=== PATIENT | male | born 1955 ===

== ENCOUNTER 2017-04-23 01:28 | Emergency (ER) | payer OTHER ==
--- NOTE | 2017-04-23 01:44 | ED PDOC ---
Arrival/HPI - General Chief Complaint: Alcohol Ingestion Time Seen by Provider: 04/23/17 01:40 Historian: Patient, EMS - History of Present Illness Narrative History of Present Illness (Text): 04/23/17 01:44 Dipesh Vincent is a 61 year old male who presents to the Emergency department brought in by EMS for public intoxication. Patient was found outside inebriated tonight. Patient admits to drinking alcohol and denies any complaints. Patient denies any fever, chills, chest pain, shortness of breath, nausea, vomiting, diarrhea, urinary symptoms, back pain, neck pain, headache, dizziness, or any other complaints. Time/Duration: Other (tonight) Symptom Onset: Gradual Symptom Course: Unchanged Activities at Onset: Light Context: Street Past Medical History - Provider Review Nursing Documentation Reviewed: Yes - Psychiatric Hx Substance Use: (denies) Family/Social History - Physician Review Nursing Documentation Reviewed: Yes Family/Social History: Unknown Family HX Smoking Status: denies Hx Alcohol Use: Yes Frequency of alcohol use: Daily Hx Substance Use: (denies) Allergies/Home Meds Home Medications: Home Meds Medication Instructions Recorded Confirmed Unobtainable 04/23/17 04/23/17 Review of Systems - Physician Review All systems were reviewed & negative as marked: Yes - Review of Systems Constitutional: Normal. absent: Fevers Eyes: Normal ENT: Normal Respiratory: Normal. absent: SOB, Cough Cardiovascular: Normal. absent: Chest Pain Gastrointestinal: Normal. absent: Abdominal Pain, Diarrhea, Nausea, Vomiting Genitourinary Male: Normal. absent: Dysuria, Frequency, Hematuria, Urinary Output Changes Musculoskeletal: Normal. absent: Back Pain, Neck Pain Skin: Normal. absent: Rash Neurological: Normal. absent: Headache, Dizziness Endocrine: Normal Hemo/Lymphatic: Normal Psychiatric: Other (+alcohol intoxication) Physical Exam Vital Signs Reviewed: Yes Vital Signs Temp Pulse Resp BP Pulse Ox 04/23/17 06:44 97.5 F L 93 H 18 113/70 97 04/23/17 01:57 67 18 116/74 99 Temperature: Afebrile Blood Pressure: Normal Pulse: Regular Respiratory Rate: Normal Appearance: Positive for: Well-Appearing, Comfortable Pain Distress: None Mental Status: Positive for: other (Alert) - Systems Exam Head: Present: Atraumatic, Normocephalic Pupils: Present: PERRL Extroacular Muscles: Present: EOMI Conjunctiva: Present: Normal Mouth: Present: Moist Mucous Membranes Neck: Present: Normal Range of Motion Respiratory/Chest: Present: Clear to Auscultation, Good Air Exchange. No: Respiratory Distress, Accessory Muscle Use Cardiovascular: Present: Regular Rate and Rhythm, Normal S1, S2. No: Murmurs Abdomen: Present: Normal Bowel Sounds. No: Tenderness, Distention, Peritoneal Signs Back: Present: Normal Inspection Upper Extremity: Present: Normal Inspection. No: Cyanosis, Edema Lower Extremity: Present: Normal Inspection. No: Edema Neurological: Present: GCS=15, CN II-XII Intact, Speech Normal Skin: Present: Warm, Dry, Normal Color. No: Rashes Psychiatric: Present: Alert Medical Decision Making ED Course and Treatment: 04/23/17 01:44 Impression: 61 year old male brought in for alcohol intoxication. Differential Diagnosis included but are not limited to: alcohol intoxication Plan: -- Reassess and disposition Progress Notes: 04/23/17 07:00 Case endorsed to me by Dr. Wu, pending sobriety, re-evaluation, and final disposition. - Scribe Statement The provider has reviewed the documentation as recorded by the Shine Elmore Provider Scribe Attestation: All medical record entries made by the Scribe were at my direction and personally dictated by me. I have reviewed the chart and agree that the record accurately reflects my personal performance of the history, physical exam, medical decision making, and the department course for this patient. I have also personally directed, reviewed, and agree with the discharge instructions and disposition. Disposition/Present on Arrival - Present on Arrival Any Indicators Present on Arrival: No History of DVT/PE: No History of Uncontrolled Diabetes: No Urinary Catheter: No History of Decub. Ulcer: No History Surgical Site Infection Following: None - Disposition Have Diagnosis and Disposition been Completed?: No Diagnosis: Alcohol intoxication Disposition Time: 07:00 Condition: STABLE Referrals: PCP,NO [Primary Care Provider] - Follow up with primary Forms: [employer] (Guatemalan)
[2017-04-23] MEDS ORDERED: Sodium Chloride 0.9% 1,000 ML IV STA (07:58)
--- NOTE | 2017-04-23 08:00 | ED PDOC ---
Physical Exam Vital Signs Temp Pulse Resp BP Pulse Ox 04/23/17 09:00 97.6 F 78 19 119/70 100 04/23/17 06:44 97.5 F L 93 H 18 113/70 97 04/23/17 01:57 67 18 116/74 99 Medical Decision Making ED Course and Treatment: 04/23/17 07:59 Patient endorsed to me at 0700. I reviewed triage note and re-examined patient. Patient speaks Italian, is arousable, moves all extremities well. Is nontoxic appearing with stable vital signs and no respiratory distress. No focal motor or sensory deficits noted. ? smell of acetone vs ETOH on exam. IV fluids ordered with basic labs. No family present. Patient admits that he has been drinking No trauma noted. 04/23/17 11:05 Labs reviewed. Blood sugar unremarkable. Anion gap unremarkable currently. Patient alcohol level elevated on labs. With serial exams he is currently awake, alert, normal speech, steady gait. He denies complaints. Re-evaluation, patient is comfortable, denies complaints. Steady gait. Risks of etoh abuse reviewed. Offered counseling he does not wish for this. Discharged with instructions. - Lab Interpretations Lab Results: 04/23/17 08:13 04/23/17 08:13 Lab Results 04/23/17 08:13: Acetaminophen < 10.0 L 04/23/17 08:13: Alcohol, Quantitative 197 H 04/23/17 08:13: PT 11.6, INR 1.05, APTT 29.9 04/23/17 08:13: WBC 6.7, RBC 4.81, Hgb 15.1, Hct 43.4, MCV 90.2, MCH 31.4, MCHC 34.8, RDW 13.3, Plt Count 192, MPV 9.2, Gran % 50.8, Lymph % (Auto) 36.5 H, [place] % (Auto) 5.6, Eos % (Auto) 6.8 H, Baso % (Auto) 0.3, Gran # 3.38, Lymph # 2.4, [place] # 0.4, Eos # 0.5, Baso # 0.02 04/23/17 08:13: Sodium 142, Potassium 3.7, Chloride 100, Carbon Dioxide 27, Anion Gap 20, BUN 15, Creatinine 0.8, Est GFR ( Amer) > 60, Est GFR (Non- Af Amer) > 60, Random Glucose 104, Calcium 8.9, Total Bilirubin 1.2, AST 48, ALT 33, Alkaline Phosphatase 69, Total Protein 8.4 H, Albumin 4.4, Globulin 4.0 , Albumin/Globulin Ratio 1.1 04/23/17 08:12: POC Glucose (mg/dL) 93 - Medication Orders Current Medication Orders: Discontinued Medications Sodium Chloride (Sodium Chloride 0.9%) 1,000 mls @ 1,000 mls/hr IV .Q1H STA Stop: 04/23/17 08:57 Last Admin: 04/23/17 08:20 Dose: 1,000 mls/hr eMAR Start Stop Document 04/23/17 08:20 [place] (Rec: 04/23/17 08:21 [place] [facility] [id number] Intravenous Solution Start Date 04/23/17 Start Time 08:21 Disposition/Present on Arrival - Present on Arrival Any Indicators Present on Arrival: No History of DVT/PE: No History of Uncontrolled Diabetes: No Urinary Catheter: No History of Decub. Ulcer: No History Surgical Site Infection Following: None - Disposition Have Diagnosis and Disposition been Completed?: Yes Diagnosis: Alcohol intoxication Disposition: HOME/ ROUTINE Disposition Time: 11:08 Patient Plan: Discharge Condition: STABLE Discharge Instructions (ExitCare): Alcohol Intoxication (ED) Print Language: ENGLISH Additional Instructions: For any tremors, shaking, headaches, chest pain, shortness of breath, abdominal pain, nausea or vomiting, numbness or weakness, get rechecked. Do not drink and drive. Do not drink excessively. Follow-up with your physician in 1-2 days. Referrals: [facility] [place] [facility] [place] - Follow up with primary [facility] [Outside] - Follow up with primary Forms: [employer] (Jamaican)
[2017-04-23 08:36] LABS: BASO # 0.02 K/mm3 (0.0-2.0); BASO % 0.3 % (0.0-3.0); EOS # 0.5 (0.0-0.7); EOS % 6.8 % (1.5-5.0); GRAN # 3.38 (1.4-6.5); GRAN % 50.8 % (50.0-68.0); HEMATOCRIT 43.4 % (42.0-52.0); LYMPH # 2.4 (1.2-3.4); LYMPH % 36.5 % (22.0-35.0); MEAN CELL VOLUME 90.2 fl (80.0-105.0); MEAN CORPUSCULAR HEMOGLOBIN 31.4 pg (25.0-35.0); MEAN CORPUSCULAR HGB CONC 34.8 g/dl (31.0-37.0); MEAN PLATELET VOLUME 9.2 fl (7.0-11.0); MONO # 0.4 (0.1-0.6); MONO % 5.6 % (1.0-6.0); RED CELL DISTRIBUTION WIDTH 13.3 % (11.5-14.5); WHITE BLOOD COUNT 6.7 10^3/ul (4.5-11.0)
[2017-04-23 08:39] LABS: INR 1.05 (0.93-1.08)
[2017-04-23 08:40] LABS: PARTIAL THROMBOPLASTIN TIME 29.9 Seconds (25.1-36.5)
[2017-04-23 09:01] VITALS: BP 119/70; PULSE 78; RESP 19; TEMP 97.6; O2SAT 100
[2017-04-23 09:07] LABS: ALKALINE PHOSPHATASE 69 U/L (38-126); ALT/SGPT 33 U/L (7-56); AST/SGOT 48 U/L (17-59); BILIRUBIN,TOTAL 1.2 mg/dL (0.2-1.3); BLOOD UREA NITROGEN 15 mg/dL (7-21); CALCIUM 8.9 mg/dL (8.4-10.5); CARBON DIOXIDE 27 mmol/L (21-33); CHLORIDE 100 mmol/L (98-107); GFR AFRICAN-AMERICAN > 60; GLUCOSE,RANDOM 104 mg/dL (70-110); POTASSIUM 3.7 mmol/L (3.6-5.0); SODIUM 142 mmol/L (132-148); TOTAL PROTEIN 8.4 g/dL (5.8-8.3)
[2017-04-23 09:08] LABS: ALB/GLOB RATIO 1.1 (1.1-1.8)
== END 2017-04-23 13:45 | disposition home or self-care (01) ==
LOC: ED 01:28 → MERGE 01:28 → ED 13:45
DX: F10.129 Alcohol abuse with intoxication, unspecified (principal); Y90.6 Blood alcohol level of 120-199 mg/100 ml
CPT/HCPCS: 80053; 80320; 80329; 82948; 85025; 85610; 85730; 99284; J7040

== ENCOUNTER 2017-07-05 22:10 | Emergency (ER) | payer OTHER ==
--- NOTE | 2017-07-05 22:42 | ED PDOC ---
Arrival/HPI - General Chief Complaint: Chest Pain Time Seen by Provider: 07/05/17 22:35 Historian: Patient, Route Deliverer - History of Present Illness Narrative History of Present Illness (Text): 07/05/17 22:42 Dipesh Huang is a 62 year old male, was brought in by EMS, presents to the Emergency department with left sided chest pain and associated headache since yesterday. Patient states chest pain improved after receiving aspirin in the field. Patient denies any fever, chills, shortness of breath, nausea, vomiting, diarrhea, urinary symptoms, back pain, neck pain, headache, dizziness or any other complaints. Patient admits to drinking alcohol tonight. Time/Duration: Prior to Arrival (today) Symptom Onset: Sudden Symptom Course: Improving (after given aspirin ) Context: Home Past Medical History - Provider Review Nursing Documentation Reviewed: Yes - Past History Past History: Non-Contributing - Psychiatric Hx Substance Use: No - Anesthesia Hx Anesthesia: No - Suicidal Assessment Feels Threatened In Home Enviroment: No Family/Social History - Physician Review Nursing Documentation Reviewed: Yes Family/Social History: Unknown Family HX Smoking Status: Never Smoked Hx Alcohol Use: Yes Hx Substance Use: No Allergies/Home Meds Allergies/Adverse Reactions: Allergies No Known Allergies Allergy (Verified 04/19/16 17:28) Home Medications: Home Meds Medication Instructions Recorded Confirmed No Known Home Med [No Known Home 06/03/14 08/30/16 Med] Unobtainable 04/23/17 04/23/17 Review of Systems - Physician Review All systems were reviewed & negative as marked: Yes - Review of Systems Constitutional: Normal Eyes: Normal ENT: Normal Respiratory: Normal. absent: SOB, Cough Cardiovascular: Chest Pain Gastrointestinal: Normal. absent: Abdominal Pain, Diarrhea, Nausea, Vomiting Genitourinary Male: Normal. absent: Dysuria, Frequency, Hematuria, Urinary Output Changes Musculoskeletal: Normal. absent: Back Pain, Neck Pain Skin: Normal. absent: Rash Neurological: Headache. absent: Dizziness Endocrine: Normal Hemo/Lymphatic: Normal Psychiatric: Normal Physical Exam Vital Signs Reviewed: Yes Vital Signs Temp Pulse Resp BP Pulse Ox 07/06/17 06:06 98.1 F 78 17 144/82 98 07/06/17 02:04 73 17 115/82 100 07/05/17 22:22 97.5 F L 76 17 120/78 100 Temperature: Afebrile Blood Pressure: Normal Pulse: Regular Respiratory Rate: Normal Appearance: Positive for: Well-Appearing, Non-Toxic, Comfortable Pain Distress: None Mental Status: Positive for: Alert and Oriented X 3 - Systems Exam Head: Present: Atraumatic, Normocephalic Pupils: Present: PERRL Extroacular Muscles: Present: EOMI Conjunctiva: Present: Normal Mouth: Present: Moist Mucous Membranes Neck: Present: Normal Range of Motion Respiratory/Chest: Present: Clear to Auscultation, Good Air Exchange. No: Respiratory Distress, Accessory Muscle Use Cardiovascular: Present: Regular Rate and Rhythm, Normal S1, S2. No: Murmurs Abdomen: Present: Normal Bowel Sounds. No: Tenderness, Distention, Peritoneal Signs Back: Present: Normal Inspection Upper Extremity: Present: Normal Inspection. No: Cyanosis, Edema Lower Extremity: Present: Normal Inspection. No: Edema Neurological: Present: GCS=15, CN II-XII Intact, Speech Normal Skin: Present: Warm, Dry, Normal Color. No: Rashes Psychiatric: Present: Alert, Oriented x 3, Normal Insight, Normal Concentration Medical Decision Making ED Course and Treatment: 07/05/17 22:42 Impression: 62 year old male presents to the Emergency department with chest pain since yesterday. Plan: -- EKG -- Xray Chest -- Urinalysis -- Labs -- Reassess and disposition Prior Visits: Notes and results from previous visits were reviewed. Patient was last seen in the emergency department on 04/23/2017 for alcohol intoxication. Progress Notes: Reviewed EKG, NSR at [address]/T wave changes. 07/06/17 00:32 Chest X-ray reviewed, shows no acute distress. Pt states he sleeping, in no acute distress, states feels fine currently. Pt states he does not wish to stay in the hospital. I have discussed the results and plan with the patient, who expresses understanding. Patient in agreement with plan to be discharged home. Patient is stable for discharge. Patient was instructed to follow up with physician or return if symptoms worsen or new concerning symptoms arise. Cardiology / EKG Studies 07/05/17 22:22 EKG [ELECTROCARDIOGRAM] Stat Comment: Reason For Exam: CHEST PAIN 07/07/17 07:45 pt observed sleeping in nad, serial trop neg. pt asking ro dc steady gait - Lab Interpretations Lab Results: 07/05/17 23:07 07/05/17 23:07 Lab Results 07/06/17 00:54: Troponin I 0.02 07/05/17 23:07: Sodium 146, Potassium 3.4 L, Chloride 107, Carbon Dioxide 22, Anion Gap 21 H, BUN 12, Creatinine 1.0, Est GFR ( Amer) > 60, Est GFR ( Non-Af Amer) > 60, Random Glucose 104, Calcium 8.7, Magnesium 1.8, Total Bilirubin 0.4, AST 40, ALT 38, Alkaline Phosphatase 67, Lactate Dehydrogenase 522, Total Creatine Kinase 216, Troponin I 0.02, Total Protein 7.5, Albumin 3.8 , Globulin 3.7, Albumin/Globulin Ratio 1.0 L 07/05/17 23:07: PT 11.5, INR 1.01, APTT 30.4 07/05/17 23:07: WBC 5.8, RBC 4.39, Hgb 13.6 L, Hct 40.9 L, MCV 93.2 D, MCH 31.0 , MCHC 33.3, RDW 14.1, Plt Count 144, MPV 9.4, Gran % 43.3 L, Lymph % (Auto) 34.4, [place] % (Auto) 18.8 H, Eos % (Auto) 3.3, Baso % (Auto) 0.2, Gran # 2.52, Lymph # (Auto) 2.0, [place] # (Auto) 1.1 H, Eos # (Auto) 0.2, Baso # (Auto) 0.01 I have reviewed the lab results: Yes - RAD Interpretation Radiology Orders: 07/05/17 22:42 CHEST PORTABLE [RAD] Stat Corset Maker: ED Physician - EKG Interpretation Interpreted by ED Physician: Yes Type: 12 lead EKG - Scribe Statement The provider has reviewed the documentation as recorded by the Shine Oneill training under Mercedes Elmore All medical record entries made by the Madelynibshelia were at my direction and personally dictated by me. I have reviewed the chart and agree that the record accurately reflects my personal performance of the history, physical exam, medical decision making, and the department course for this patient. I have also personally directed, reviewed, and agree with the discharge instructions and disposition. Disposition/Present on Arrival - Present on Arrival Any Indicators Present on Arrival: No History of DVT/PE: No History of Uncontrolled Diabetes: No Urinary Catheter: No History of Decub. Ulcer: No History Surgical Site Infection Following: None - Disposition Have Diagnosis and Disposition been Completed?: Yes Diagnosis: Chest pain Disposition: HOME/ ROUTINE Disposition Time: 06:00 Condition: STABLE Discharge Instructions (ExitCare): Chest Pain (ED) Additional Instructions: follow up with your doctor/clinic and specialist. return to er with worsening symptoms or concerns. Referrals: [facility] [Outside] - Follow up with primary [facility] [place]] - Follow up with primary Zander Palma MD [Staff Provider] - Follow up with primary Forms: [employer] (Tajik)
[2017-07-05 23:51] LABS: BASO # 0.01 K/mm3 (0.0-2.0); BASO % 0.2 % (0.0-3.0); EOS # 0.2 (0.0-0.7); EOS % 3.3 % (1.5-5.0); GRAN # 2.52 (1.4-6.5); GRAN % 43.3 % (50.0-68.0); HEMOGLOBIN 13.6 g/dL (14.0-18.0); LYMPH % 34.4 % (22.0-35.0); MEAN CELL VOLUME 93.2 fl (80.0-105.0); MEAN CORPUSCULAR HGB CONC 33.3 g/dl (31.0-37.0); MEAN PLATELET VOLUME 9.4 fl (7.0-11.0); MONO # 1.1 (0.1-0.6); MONO % 18.8 % (1.0-6.0); RBC 4.39 10^6/uL (3.5-6.1); RED CELL DISTRIBUTION WIDTH 14.1 % (11.5-14.5); WHITE BLOOD COUNT 5.8 10^3/ul (4.5-11.0)
[2017-07-06 00:08] LABS: ALBUMIN 3.8 g/dL (3.0-4.8); ALT/SGPT 38 U/L (7-56); AST/SGOT 40 U/L (17-59); BLOOD UREA NITROGEN 12 mg/dL (7-21); CALCIUM 8.7 mg/dL (8.4-10.5); GFR AFRICAN-AMERICAN > 60; GFR NON-AFRICAN AMERICAN > 60; MAGNESIUM 1.8 mg/dL (1.7-2.2)
[2017-07-06 00:15] LABS: INR 1.01 (0.93-1.08); PARTIAL THROMBOPLASTIN TIME 30.4 Seconds (25.1-36.5); PROTHROMBIN TIME 11.5 SECONDS (9.4-12.5)
[2017-07-06 00:18] VITALS: RESP 17
[2017-07-06 00:19] LABS: TROPONIN I 0.02 ng/mL
[2017-07-06 06:07] VITALS: BP 144/82; PULSE 78; TEMP 98.1; O2SAT 98
--- NOTE | 2017-07-06 09:15 | RAD ---
HISTORY: cp COMPARISON: No prior. FINDINGS: LUNGS: No active pulmonary disease. PLEURA: No significant pleural effusion identified, no pneumothorax apparent. CARDIOVASCULAR: Normal. OSSEOUS STRUCTURES: No significant abnormalities. VISUALIZED UPPER ABDOMEN: Normal. OTHER FINDINGS: None. IMPRESSION: No active disease.
--- NOTE | 2017-07-06 16:11 | CARD ---
APPROVED REPORT EKG Measurement Heart [id number] <Conclusion> Normal sinus rhythm Left axis deviation Abnormal ECG
== END 2017-07-06 06:07 | disposition home or self-care (01) ==
LOC: ED 22:10
DX: R07.9 Chest pain, unspecified (principal)